=== PATIENT | female | born 1970 | race Caucasian/White ===

== ENCOUNTER 2021-09-10 13:40 | Inpatient (IN) ==
[2021-09-10 14:16] LABS: Basophils # 0.1 10*3/uL (0.0-0.2); Basophils % 0.4 % (0.0-0.8); Eosinophils % 0.2 % (0.00-10.9); Hematocrit 45.5 VOL% (35.7-47.0); Hemoglobin 14.6 GM/DL (12.0-16.0); Immature Granulocytes % 0.6 %; Immature Granulocytes Absolute 0.11 #; Lymphocytes # 1.3 10*3/uL (1.4-4.0); Lymphocytes % 6.7 % (21.3-54.2); Mean Corpuscular HGB Conc 32.1 GM/DL (32-36); Mean Corpuscular Volume 83.5 FL (87-102); Mean Platelet Volume 9.5 FL (9.6-12.0); Monocytes % 10.1 % (1.7-12.7); Platelet Count 471 T/CUMM (130-400); Red Blood Count 5.45 MC/CUMM (3.8-5.5); Red Cell Distribution Width 14.3 % (9.3-17.3); White Blood Count 18.7 T/CUMM (4-12)
[2021-09-10 14:34] LABS: Albumin 3.3 G/DL (3.4-5.0); Bilirubin,Total 0.6 MG/DL (0.20-1.00); Calcium 8.8 MG/DL (8.5-10.1); Osmolality,Calculated 276.7 MOS/KG (273-304); Potassium 3.4 MMOL/L (3.5-5.1)
[2021-09-10] MEDS ORDERED: ONDANSETRON 4 MG/2 ML VIAL IV ONE ×2 (14:48→16:31)
[2021-09-10] MEDS ORDERED: HYDROmorphone 2 MG/1 ML VIAL IV STA ×2 (14:48→16:31)
[2021-09-10 14:54] LABS: Bilirubin,Urine Negative (Negative); Blood, Urine Small mg/dL (Negative); Glucose,Urine (UA) Negative (Negative); Ketones,Urine Negative (Negative); Nitrite,Urine Negative (Negative); Protein,Urine Negative; Urine Appearance CLEAR (Clear); Urine Color Yellow (Yellow); Urine Specific Gravity 1.017 (1.001-1.035)
[2021-09-10 15:03] LABS: Mucus,Urine Occasional /LPF (Occasional); RBC,Urine 4 /HPF (0-4); Squamous Epithelial Cell,Urine Occasional /HPF (0-10)
[2021-09-10] MEDS ORDERED: PROMETHAZINE 25 MG/1 ML VIAL ONE (16:10)
[2021-09-10] MEDS ORDERED: PROMETHAZINE 25 MG/1 ML VIAL IM STA (16:13)
[2021-09-10] MEDS ORDERED: SODIUM CHLORIDE 0.9% 1,000 ML IV STA (16:35)
[2021-09-10] MEDS ORDERED: NICOTINE 21 MG/24 HR PATCH TRANSDERM PRN (17:48)
[2021-09-10] MEDS ORDERED: GLUCAGON 1 MG VIAL IM PRN (17:48)
[2021-09-10] MEDS ORDERED: hydrALAZINE 20 MG/1 ML VIAL IV PRN (17:48)
[2021-09-10] MEDS ORDERED: CALCIUM CARBONATE CHEW 500 MG TABLET PO PRN (17:48)
[2021-09-10] MEDS ORDERED: DEXTROSE 50% 25 GM/50 ML SYRINGE IV PRN (18:01)
[2021-09-10] MEDS: SODIUM CHLORIDE 0.9% 1,000 ML IV SCH (18:14)
[2021-09-10] MEDS ORDERED: SCOPOLAMINE 1.5 MG PATCH TRANSDERM ONE (20:00)
[2021-09-10] MEDS: MORPHINE 2 MG/1 ML SYRINGE IV PRN ×2 (20:03→21:43)
[2021-09-10] MEDS: PANTOPRAZOLE 40 MG VIAL IV SCH (20:10)
[2021-09-10] MEDS: ENOXAPARIN 40 MG/0.4 ML SYRINGE SUBCUT SCH (21:23)
[2021-09-11] MEDS: MORPHINE 2 MG/1 ML SYRINGE IV PRN ×3 (01:33→05:35)
[2021-09-11] MEDS: SODIUM CHLORIDE 0.9% 1,000 ML IV SCH ×3 (02:20→20:26)
[2021-09-11] MEDS: ONDANSETRON 4 MG/2 ML VIAL IV PRN ×4 (03:19→22:54)
[2021-09-11 05:42] LABS: Basophils # 0.1 10*3/uL (0.0-0.2); Basophils % 0.3 % (0.0-0.8); Eosinophils # 0.3 10*3/uL (0.0-0.87); Eosinophils % 1.8 % (0.00-10.9); Hematocrit 44.4 VOL% (35.7-47.0); Hemoglobin 13.9 GM/DL (12.0-16.0); Immature Granulocytes % 0.5 %; Immature Granulocytes Absolute 0.08 #; Lymphocytes # 2.2 10*3/uL (1.4-4.0); Mean Corpuscular HGB Conc 31.3 GM/DL (32-36); Mean Corpuscular Volume 85.5 FL (87-102); Mean Platelet Volume 10.5 FL (9.6-12.0); Monocytes % 15.1 % (1.7-12.7); Neutrophils % 67.3 % (38.7-73.9); Platelet Count 389 T/CUMM (130-400); Red Blood Count 5.19 MC/CUMM (3.8-5.5); Red Cell Distribution Width 14.6 % (9.3-17.3); White Blood Count 14.7 T/CUMM (4-12)
[2021-09-11 06:08] LABS: Albumin 2.8 G/DL (3.4-5.0); Bilirubin,Total 1.8 MG/DL (0.20-1.00); Calcium 8.4 MG/DL (8.5-10.1); Osmolality,Calculated 275.5 MOS/KG (273-304); Potassium 3.4 MMOL/L (3.5-5.1); Total Protein 7.4 G/DL (6.4-8.2)
[2021-09-11] MEDS ORDERED: HYDROmorphone 2 MG/1 ML VIAL IV PRN (07:06)
[2021-09-11] MEDS: ACETAMINOPHEN 325 MG TABLET PO PRN ×3 (07:14→21:18)
[2021-09-11] MEDS: PANTOPRAZOLE 40 MG VIAL IV SCH (08:33)
[2021-09-11] MEDS: HYDROmorphone 2 MG/1 ML VIAL IV PRN ×6 (10:44→22:53)
[2021-09-11] MEDS: PROMETHAZINE 25 MG/1 ML VIAL IM PRN (15:19)
[2021-09-11] MEDS ORDERED: MAGNESIUM SULF RIDER 4 GM/100 ML PREMIX IV PRN (15:43)
[2021-09-11] MEDS ORDERED: MAGNESIUM SULF RIDER 2 GM/50 ML PREMIX IV PRN (15:43)
[2021-09-11] MEDS: ENOXAPARIN 40 MG/0.4 ML SYRINGE SUBCUT SCH (20:23)
[2021-09-12] MEDS: HYDROmorphone 2 MG/1 ML VIAL IV PRN ×6 (00:45→20:17)
[2021-09-12 03:42] LABS: Calcium 8.5 MG/DL (8.5-10.1); Osmolality,Calculated 275.5 MOS/KG (273-304); Potassium 3.4 MMOL/L (3.5-5.1)
[2021-09-12] MEDS: ACETAMINOPHEN 325 MG TABLET PO PRN ×2 (05:04→23:15)
[2021-09-12 05:48] LABS: Basophils # 0.1 10*3/uL (0.0-0.2); Basophils % 0.3 % (0.0-0.8); Eosinophils # 0.4 10*3/uL (0.0-0.87); Eosinophils % 2.1 % (0.00-10.9); Hematocrit 40.5 VOL% (35.7-47.0); Hemoglobin 12.6 GM/DL (12.0-16.0); Immature Granulocytes % 0.4 %; Immature Granulocytes Absolute 0.07 #; Lymphocytes # 1.7 10*3/uL (1.4-4.0); Lymphocytes % 10.3 % (21.3-54.2); Mean Corpuscular HGB Conc 31.1 GM/DL (32-36); Mean Corpuscular Volume 85.4 FL (87-102); Mean Platelet Volume 9.9 FL (9.6-12.0); Monocytes % 9.1 % (1.7-12.7); Neutrophils % 77.8 % (38.7-73.9); Platelet Count 374 T/CUMM (130-400); Red Blood Count 4.74 MC/CUMM (3.8-5.5); Red Cell Distribution Width 14.7 % (9.3-17.3); White Blood Count 16.8 T/CUMM (4-12)
[2021-09-12 05:58] LABS: INR 1.2; PT Patient Result 13.5 SECS (10.5-12.0)
[2021-09-12] MEDS ORDERED: HYDROmorphone 2 MG/1 ML VIAL IV PRN ×2 (08:48→16:42)
[2021-09-12] MEDS: SODIUM CHLORIDE 0.9% 1,000 ML IV SCH (10:39)
[2021-09-12] MEDS: PANTOPRAZOLE 40 MG VIAL IV SCH (10:39)
[2021-09-12] MEDS: PROMETHAZINE 25 MG/1 ML VIAL IM PRN (11:05)
[2021-09-12] MEDS ORDERED: POTASSIUM CHLORIDE 20 MEQ TABLET PO ONE (12:00)
[2021-09-12] MEDS ORDERED: DIAZEPAM 5 MG TABLET PO ONE (13:09)
[2021-09-12] MEDS ORDERED: SODIUM CHLORIDE 0.45% 1,000 ML IV SCH (13:30)
[2021-09-12] MEDS: ONDANSETRON 4 MG/2 ML VIAL IV PRN (15:46)
[2021-09-12] MEDS: LACTATED RINGERS 1,000 ML IV SCH (15:48)
[2021-09-12] MEDS ORDERED: ACETAMINOPHEN 325 MG TABLET PO ONE (16:41)
[2021-09-12] MEDS ORDERED: fentaNYL 50 MCG/HR PATCH TRANSDERM SCH (17:00)
[2021-09-12] MEDS ORDERED: guaiFENesin 200 MG/10 ML UDCUP PO PRN (17:05)
[2021-09-12] MEDS ORDERED: traMADol 50 MG TABLET PO PRN (17:05)
[2021-09-12] MEDS ORDERED: PROMETHAZINE INJ 25 MG in SODIUM CHLORIDE 0.9% 50 ML IV PRN (17:05)
[2021-09-12] MEDS ORDERED: ALPRAZolam 0.25 MG TABLET PO PRN (17:05)
[2021-09-12] MEDS ORDERED: MYLANTA/LIDO VISC 2:1 300 ML BOTTLE SWISH/SWAL PRN (17:05)
[2021-09-12] MEDS ORDERED: MAGNESIUM HYDROXIDE SUSP 30 ML UDCUP PO PRN (17:05)
[2021-09-12] MEDS ORDERED: LOPERAMIDE 2 MG CAPSULE PO PRN ×2 (17:05)
[2021-09-12] MEDS ORDERED: LACTULOSE 20 GM/30 ML UDCUP PO PRN (17:05)
[2021-09-12] MEDS ORDERED: diphenhydrAMINE CAP 25 MG CAPSULE PO PRN (17:05)
[2021-09-12] MEDS ORDERED: MYLANTA/LIDO VISC 2:1 300 ML BOTTLE SWISH/SPIT PRN (17:05)
[2021-09-12] MEDS ORDERED: TEMAZEPAM 7.5 MG CAPSULE PO PRN (17:05)
[2021-09-12] MEDS ORDERED: ONDANSETRON 4 MG/2 ML VIAL IV PRN (17:05)
[2021-09-12] MEDS ORDERED: ALUMINUM/MAGNES/SIMETH MAX STR 30 ML UDCUP PO PRN (17:05)
[2021-09-12] MEDS: ENOXAPARIN 40 MG/0.4 ML SYRINGE SUBCUT SCH (20:17)
[2021-09-12] MEDS ORDERED: QUEtiapine 25 MG TABLET PO SCH (21:00)
[2021-09-13] MEDS: HYDROmorphone 2 MG/1 ML VIAL IV PRN ×4 (00:35→09:11)
[2021-09-13] MEDS: LACTATED RINGERS 1,000 ML IV SCH (01:31)
[2021-09-13 05:48] LABS: Basophils # 0.1 10*3/uL (0.0-0.2); Basophils % 0.3 % (0.0-0.8); Eosinophils # 0.6 10*3/uL (0.0-0.87); Eosinophils % 3.4 % (0.00-10.9); Hematocrit 43.1 VOL% (35.7-47.0); Hemoglobin 13.2 GM/DL (12.0-16.0); Immature Granulocytes % 0.5 %; Immature Granulocytes Absolute 0.09 #; Lymphocytes # 3.3 10*3/uL (1.4-4.0); Lymphocytes % 19.7 % (21.3-54.2); Mean Corpuscular HGB Conc 30.6 GM/DL (32-36); Mean Corpuscular Volume 86.7 FL (87-102); Mean Platelet Volume 10.4 FL (9.6-12.0); Monocytes % 9.6 % (1.7-12.7); Neutrophils % 66.5 % (38.7-73.9); Platelet Count 478 T/CUMM (130-400); Red Blood Count 4.97 MC/CUMM (3.8-5.5); Red Cell Distribution Width 15.1 % (9.3-17.3); White Blood Count 16.7 T/CUMM (4-12)
[2021-09-13 06:18] LABS: Albumin 2.6 G/DL (3.4-5.0); Bilirubin,Total 0.9 MG/DL (0.20-1.00); Calcium 9.3 MG/DL (8.5-10.1); Osmolality,Calculated 280.3 MOS/KG (273-304); Potassium 3.6 MMOL/L (3.5-5.1); Total Protein 8.1 G/DL (6.4-8.2)
[2021-09-13] MEDS ORDERED: SUMAtriptan 25 MG TABLET PO ONE (09:03)
[2021-09-13 12:45] VITALS: BP 119/70
== END 2021-09-13 14:00 | disposition home or self-care (01) | DRG 281 ==
LOC: EDBD → EDUNIT# → N.ED 13:40 → N.EDINP 13:40 → SUATTDRO 17:48 → N.2E 19:11
PROVIDERS: ADMIT Internal Medicine; ATTEND Internal Medicine